=== PATIENT | female | born 1995 | race African-American/Black ===

== ENCOUNTER 2023-10-04 15:55 | Emergency (ER) | payer MEDICAID, OTHER ==
[~2023-10-04] VITALS: Ht 167.6 cm; Wt 86.0 kg
[2023-10-04 16:02] VITALS: BP 117/72; TEMP 98.5; O2SAT 92
[2023-10-04] MEDS ORDERED: IPRATROPIUM BROMIDE (0.02%) 0.5MG/2.5ML NEB HHN STA (17:35)
[2023-10-04] MEDS ORDERED: PREDNISONE 20MG TABLET PO STA (17:35)
[2023-10-04 18:00] VITALS: PULSE 88; RESP 24
[2023-10-04] MEDS ORDERED: IBUPROFEN 600MG TABLET PO ONE (18:00)
[2023-10-04] MEDS: ALBUTEROL (0.083%) 2.5MG/3ML NEB HHN SCH ×2 (18:07→18:12)
[2023-10-04] MEDS ORDERED: ALBU6.7H15 INH (19:18)
[2023-10-04] MEDS ORDERED: METH-653 MT (19:18)
[2023-10-04] MEDS ORDERED: ALBU05 NEB (19:18)
[2023-10-04] MEDS ORDERED: P50 MT (19:18)
== END 2023-10-04 17:39 | disposition home or self-care (01) ==
LOC: ER 15:55
DX: J45.901 Unspecified asthma with (acute) exacerbation (principal); Z98.890 Other specified postprocedural states
CPT/HCPCS: 71045; 94644; 99285; J7512; Z7610 ×3

== ENCOUNTER 2024-10-14 17:19 | Emergency (ER) | payer MEDICAID ==
[~2024-10-14] VITALS: Ht 157.5 cm; Wt 84.0 kg
[~2024-10-14 17:19] MED LIST: ALBU05 NEB; ALBU6.7H15 INH; METH-653 MT; P50 MT
[2024-10-14 17:21] VITALS: TEMP 36.9
[2024-10-14] MEDS ORDERED: PREDNISONE 20MG TABLET PO ONE (17:45)
[2024-10-14] MEDS: IPRATROPIUM/ALBUTEROL 0.5-3(2.5)MG/3ML NEB HHN ONE (18:23)
[2024-10-14] MEDS: ALBUTEROL (0.083%) 2.5MG/3ML NEB HHN ONE (18:23)
[2024-10-14 18:40] VITALS: PULSE 90; RESP 18; O2SAT 96
[2024-10-14 19:53] VITALS: BP 157/82; PULSE 87; RESP 15; O2SAT 95
[2024-10-14] MEDS ORDERED: P50 MT (20:12)
== END 2024-10-14 22:08 | disposition home or self-care (01) ==
LOC: ER 17:19
DX: J45.901 Unspecified asthma with (acute) exacerbation (principal); I50.9 Heart failure, unspecified; Z79.52 Long term (current) use of systemic steroids
CPT/HCPCS: 71045; 94640; 99283; Z7610 ×5; A4663; A4606

== ENCOUNTER 2024-11-28 08:40 | Emergency (ER) | payer MEDICAID ==
[~2024-11-28] VITALS: Ht 170.2 cm; Wt 85.0 kg
[~2024-11-28 08:40] MED LIST changes: +CALCIUM CHLORIDE 1GM/10ML SYR IV ONE
[2024-11-28 08:42] VITALS: O2SAT 0
[2024-11-28 08:43] VITALS: BP 0/0; PULSE 130; RESP 20; TEMP 36.2; O2SAT 74
== END 2024-11-28 11:00 ==
LOC: ER 08:48
DX: J44.9 Chronic obstructive pulmonary disease, unspecified (principal); I50.9 Heart failure, unspecified; I46.9 Cardiac arrest, cause unspecified
CPT/HCPCS: 99291; 92950; 82962; J3490 ×3; 99285